=== PATIENT | male | born 1940 ===

== ENCOUNTER 2017-05-09 09:28 | Emergency (ER) | payer MEDICARE ==
[2017-05-09 09:35] VITALS: BMI 32.0
[2017-05-09 09:39] VITALS: O2SAT 98
[2017-05-09 11:06] LABS: BASO # 0.1 K/uL (0.0-0.2); BASO % 1.1 % (0.0-2.0); EOS # 0.5 K/uL (0.0-0.7); EOS % 5.1 % (0.0-4.0); HEMATOCRIT 39.4 % (35.0-51.0); LYMPH # 2.7 K/uL (1.0-4.3); LYMPH % 28.4 % (20.0-40.0); MEAN CELL VOLUME 91.6 fl (80.0-94.0); MEAN CORPUSCULAR HEMOGLOBIN 30.9 pg (27.0-31.0); MEAN CORPUSCULAR HGB CONC 33.7 g/dL (33.0-37.0); MEAN PLATELET VOLUME 8.1 fl (7.2-11.7); MONO # 1.1 K/uL (0.0-0.8); NEUT % 53.4 % (50.0-75.0); NRBC % 0.1 % (0.0-0.0); RED CELL DISTRIBUTION WIDTH 14.3 % (11.5-14.5); WHITE BLOOD COUNT 9.3 K/uL (4.8-10.8)
[2017-05-09 11:12] LABS: ALB/GLOB RATIO 1.3 (1.0-2.1); ALKALINE PHOSPHATASE 44 U/L (38-126); ALT/SGPT 41 U/L (21-72); AST/SGOT 26 U/L (17-59); BILIRUBIN,TOTAL 0.4 mg/dl (0.2-1.3); BLOOD UREA NITROGEN 19 mg/dl (9-20); CARBON DIOXIDE 27 mmol/L (22-30); CHLORIDE 105 mmol/L (98-107); GFR AFRICAN-AMERICAN > 60; GLUCOSE,RANDOM 124 mg/dL (75-110); SODIUM 142 mmol/l (132-148); TOTAL PROTEIN 7.6 G/DL (6.3-8.2)
--- NOTE | 2017-05-09 11:13 | CT ---
PROCEDURE: CT HEAD WITHOUT CONTRAST. HISTORY: Funny feeling in head COMPARISON: Head CT without contrast 06/19/2012 TECHNIQUE: Axial computed tomography images were obtained through the head/brain without intravenous contrast. Radiation dose: Total exam DLP = 844.14 mGy-cm. This CT exam was performed using one or more of the following dose reduction techniques: Automated exposure control, adjustment of the mA and/or kV according to patient size, and/or use of iterative reconstruction technique. FINDINGS: HEMORRHAGE: No intracranial hemorrhage. BRAIN: Diffuse expansion of the ventriculosulcal and cisternal spaces is appreciated with white matter lucency compatible with diffuse cerebral atrophy and chronic microangiopathy. There has been only limited increase in this pattern in the interval. No additional interval findings appreciated including the extra-axial spaces. No mass effect. VENTRICLES: Unremarkable. No hydrocephalus. CALVARIUM: Unremarkable. PARANASAL SINUSES: Unremarkable as visualized. No significant inflammatory changes. MASTOID AIR CELLS: Unremarkable as visualized. No inflammatory changes. OTHER FINDINGS: None. IMPRESSION: Marginal increase in age-related neuro degenerative changes which are age-appropriate. No definite acute intracranial findings. Follow-up CT or MRI are available if clinically warranted.
--- NOTE | 2017-05-09 11:46 | CARD ---
APPROVED REPORT EKG Measurement Heart [id number] <Conclusion> Normal sinus rhythm Possible Left atrial enlargement Borderline ECG
--- NOTE | 2017-05-09 13:07 | ED PDOC ---
HPI: General Adult Time Seen by Provider: 05/09/17 10:16 Chief Complaint (Nursing): Dizziness/Lightheaded Chief Complaint (Provider): Dizziness/Lightheaded History Per: Patient History/Exam Limitations: no limitations Onset/Duration Of Symptoms: Other (x 2 weeks) Current Symptoms Are (Timing): Still Present Additional Complaint(s): Ronald is a 76 year old male with a past medical history of diabetes and hypertension who presents to the Emergency Department complaining of light headedness for 2 weeks. Patient states bilateral ear stuffiness, feeling of mosquitos in his head. Denies headache, fever, neck stiffness, chest pain, shortness of breath. 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) - Family History Family History: States: Unknown Family Hx, CAD, Diabetes - Immunization History Hx Tetanus Toxoid Vaccination: No Hx Influenza Vaccination: No Hx Pneumococcal Vaccination: No - Home Medications Home Medications: Ambulatory Orders Medication Instructions Recorded Famotidine [Pepcid] 20 mg PO BID #0 tab 10/16/15 Furosemide [Lasix] 20 mg PO DAILY #0 tab 10/16/15 Amiodarone [Cordarone] 200 mg PO DAILY #0 tab 10/31/15 Amoxicillin/Clavulanate [Augmentin 1 tab PO Q12 #14 tab 10/31/15 875 MG-125 MG] Aspirin [Ecotrin] 81 mg PO DAILY #0 tabec 10/31/15 Atorvastatin [Lipitor] 40 mg PO DAILY #0 tab 10/31/15 Ciprofloxacin 500 mg PO Q12 #0 ml 10/31/15 Clopidogrel [Plavix] 75 mg PO DAILY #0 tab 10/31/15 Collagenase [Santyl] 1 applic TOP DAILY #0 tube 10/31/15 Famotidine [Pepcid] 20 mg PO BID #0 tab 10/31/15 Ferrous Sulfate [Feosol] 325 mg PO DAILY #0 tab 10/31/15 Lisinopril [Zestril] 2.5 mg PO DAILY #0 tab 10/31/15 Metoprolol Tartrate [Lopressor] 12.5 mg PO Q12H #0 tab 10/31/15 Mirtazapine [Remeron] 7.5 mg PO HS #0 tab 10/31/15 Mirtazapine [Remeron] 7.5 mg PO HS #0 tablet 10/31/15 Potassium Chloride [K-Dur 20 mEq 20 meq PO DAILY #0 tab 10/31/15 ER Tab] Albuterol HFA [Ventolin HFA 90 1 puff IH ASDIR #1 unit 12/16/15 mcg/actuation (8 g)] Azithromycin [Zithromax Z-Regulo] 250 mg PO DAILY #7 tab 12/16/15 Benzonatate 200 mg PO TID PRN #20 capsule 12/16/15 - Allergies Allergies/Adverse Reactions: Allergies Allergy/AdvReac Type Severity Reaction Status Date / Time No Known Allergies Allergy Verified 05/09/17 09:35 Review of Systems ROS Statement: Except As Marked, All Systems Reviewed And Found Negative Constitutional: Negative for: Fever ENT: Positive for: Other (Bilaterally ear congestion, No neck stiffness) Cardiovascular: Negative for: Chest Pain Respiratory: Negative for: Shortness of Breath Neurological: Negative for: Other (Headache) Physical Exam - Reviewed Nursing Documentation Reviewed: Yes Vital Signs Reviewed: Yes - Physical Exam Appears: Positive for: Well, Non-toxic, No Acute Distress Head Exam: Positive for: ATRAUMATIC, NORMAL INSPECTION, NORMOCEPHALIC Skin: Positive for: Normal Color, Warm, Dry Eye Exam: Positive for: Normal appearance, EOMI, PERRL ENT: Positive for: Normal ENT Inspection, TM Is/Are (WNL). Negative for: Sinus Pain/Drainage, Tonsillar Swelling Neck: Positive for: Normal, Painless ROM, Supple Cardiovascular/Chest: Positive for: Regular Rate, Rhythm Respiratory: Positive for: CNT, Normal Breath Sounds Gastrointestinal/Abdominal: Positive for: Normal Exam Back: Positive for: Normal Inspection Extremity: Positive for: Normal ROM Neurologic/Psych: Positive for: Alert, integrity director II-XII, Oriented, Gait (WNL). Negative for: Motor/Sensory Deficits, Aphasia, Facial Droop - Laboratory Results Result Diagrams: 05/09/17 10:50 05/09/17 10:50 - ECG O2 Sat by Pulse Oximetry: 98 (RA) Pulse Ox Interpretation: Normal Medical Decision Making Medical Decision Making: Time: 10:16 Impressions: Light Headedness Initial Plan: - CT Head Without Contrast - EKG - CMP - CBC - Accucheck - Urinalysis Scribe Attestation: Documented by Prasad Cooper, acting as a scribe for Bouchra Temple MD Provider Scribe Attestation: All medical record entries made by the Scribe were at my direction and personally dictated by me. I have reviewed the chart and agree that the record accurately reflects my personal performance of the history, physical exam, medical decision making, and the department course for this patient. I have also personally directed, reviewed, and agree with the discharge instructions and disposition. Disposition - Clinical Impression Clinical Impression: Lightheadedness - Patient ED Disposition Is Patient to be Admitted: No - Disposition Referrals: [facility] [Outside] Disposition: Routine/Home Disposition Time: 14:22 Condition: STABLE Instructions: Lightheadedness (ED) Forms: [employer] (K[place]i) Print Language: ENGLISH
[2017-05-09 13:21] LABS: URINE BILIRUBIN NEGATIVE (NEGATIVE); URINE BLOOD MODERATE (NEGATIVE); URINE COLOR YELLOW (YELLOW); URINE GLUCOSE (UA) NEG (Normal); URINE KETONE NEGATIVE (NEGATIVE); URINE LEUKOCYTE ESTERASE NEG Leu/uL (Negative); URINE PROTEIN NEGATIVE (NEGATIVE); URINE UROBILINOGEN 0.2-1.0 mg/dL (0.2-1.0); WBC URINE 1 /hpf (0-5)
[2017-05-09 13:27] LABS: RBC URINE 10 /hpf (0-3)
[2017-05-09 14:31] VITALS: RESP 18
[2017-05-09 14:33] VITALS: BP 115/68; PULSE 82; TEMP 98.6
== END 2017-05-09 14:34 | disposition home or self-care (01) ==
LOC: H.ER 09:28
DX: R42 Dizziness and giddiness (principal); E11.9 Type 2 diabetes mellitus without complications; F32.9 Major depressive disorder, single episode, unspecified; F41.9 Anxiety disorder, unspecified; I10 Essential (primary) hypertension; I25.10 Atherosclerotic heart disease of native coronary artery without angina pectoris; Z79.82 Long term (current) use of aspirin; Z95.1 Presence of aortocoronary bypass graft

== ENCOUNTER 2017-09-15 11:15 | Emergency (ER) | payer MEDICARE ==
[2017-09-15 11:18] VITALS: BMI 31.8
[2017-09-15 11:19] VITALS: BP 154/80; PULSE 80; RESP 20; TEMP 97.7; O2SAT 98
--- NOTE | 2017-09-15 11:57 | ED PDOC ---
HPI: CCC, URI, Sore Throat Time Seen by Provider: 09/15/17 11:55 Chief Complaint (Nursing): ENT Problem Chief Complaint (Provider): Otitis Media Onset/Duration Of Symptoms: Days (2) Current Symptoms Are (Timing): Still Present Location Of Pain: Ear(s) Sick Contacts (Context): None Associated Symptoms: denies: Fever, Sore Throat, Cough Severity: Mild Past Medical History Vital Signs: Last Vital Signs Temp 97.7 F 09/15/17 11:19 Pulse 80 09/15/17 11:19 Resp 20 09/15/17 11:19 BP 154/80 H 09/15/17 11:19 Pulse Ox 98 09/15/17 11:59 - Medical History PMH: Anemia, Anxiety, CAD, Depression, Diabetes (type II), HTN Denies: HIV, Chronic Kidney Disease - Surgical History Surgical History: CABG (x3; 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) - Family History Family History: States: Unknown Family Hx, CAD, Diabetes - Immunization History Hx Tetanus Toxoid Vaccination: No Hx Influenza Vaccination: No Hx Pneumococcal Vaccination: No - Home Medications Home Medications: Ambulatory Orders Medication Instructions Recorded Famotidine [Pepcid] 20 mg PO BID #0 tab 10/16/15 Furosemide [Lasix] 20 mg PO DAILY #0 tab 10/16/15 Amiodarone [Cordarone] 200 mg PO DAILY #0 tab 10/31/15 Amoxicillin/Clavulanate [Augmentin 1 tab PO Q12 #14 tab 10/31/15 875 MG-125 MG] Aspirin [Ecotrin] 81 mg PO DAILY #0 tabec 10/31/15 Atorvastatin [Lipitor] 40 mg PO DAILY #0 tab 10/31/15 Ciprofloxacin 500 mg PO Q12 #0 ml 10/31/15 Clopidogrel [Plavix] 75 mg PO DAILY #0 tab 10/31/15 Collagenase [Santyl] 1 applic TOP DAILY #0 tube 10/31/15 Famotidine [Pepcid] 20 mg PO BID #0 tab 10/31/15 Ferrous Sulfate [Feosol] 325 mg PO DAILY #0 tab 10/31/15 Lisinopril [Zestril] 2.5 mg PO DAILY #0 tab 10/31/15 Metoprolol Tartrate [Lopressor] 12.5 mg PO Q12H #0 tab 10/31/15 Mirtazapine [Remeron] 7.5 mg PO HS #0 tab 10/31/15 Mirtazapine [Remeron] 7.5 mg PO HS #0 tablet 10/31/15 Potassium Chloride [K-Dur 20 mEq 20 meq PO DAILY #0 tab 10/31/15 ER Tab] Albuterol HFA [Ventolin HFA 90 1 puff IH ASDIR #1 unit 12/16/15 mcg/actuation (8 g)] Azithromycin [Zithromax Z-Regulo] 250 mg PO DAILY #7 tab 12/16/15 Benzonatate 200 mg PO TID PRN #20 capsule 12/16/15 Amoxicillin/Clavulanate [Augmentin 1 tab PO BID #20 tab 09/15/17 875 MG-125 MG] - Allergies Allergies/Adverse Reactions: Allergies Allergy/AdvReac Type Severity Reaction Status Date / Time No Known Allergies Allergy Verified 05/09/17 09:35 Review of Systems ROS Statement: Except As Marked, All Systems Reviewed And Found Negative ENT: Positive for: Ear Pain Physical Exam - Physical Exam Head Exam: Positive for: ATRAUMATIC, NORMAL INSPECTION, NORMOCEPHALIC Skin: Positive for: Normal Color ENT: Positive for: TM Is/Are (right TM is clear with all landmarks identified; left TM is cloudy with efusion no landmarks visible), Hearing Is (+ +). Negative for: Pharyngeal Erythema, Tonsillar Exudate Neck: Positive for: Normal, Painless ROM, Supple Pulses-Carotid (R): 2+ - ECG O2 Sat by Pulse Oximetry: 98 Medical Decision Making Medical Decision Making: Impression is Otitis Media Left Ear Plan: Augmentin x 10 days Disposition - Clinical Impression Clinical Impression: Otitis media Comment: follow up with PMD in 3-5 days. take all medication as prescribed - Disposition Disposition: Routine/Home Disposition Time: 11:59 Condition: GOOD Prescriptions: Amoxicillin/Clavulanate [Augmentin 875 MG-125 MG] 1 tab PO BID #20 tab Forms: [employer] ([place]an)
== END 2017-09-15 12:27 | disposition home or self-care (01) ==
LOC: H.ER 11:15
DX: H66.92 Otitis media, unspecified, left ear (principal); E11.9 Type 2 diabetes mellitus without complications

== ENCOUNTER 2017-09-21 11:54 | Emergency (ER) | payer MEDICARE ==
[2017-09-21 11:54] VITALS: BMI 31.8
[2017-09-21 12:10] VITALS: BP 136/65; PULSE 71; RESP 18; TEMP 98; O2SAT 98
--- NOTE | 2017-09-21 12:34 | ED PDOC ---
HPI: General Adult Time Seen by Provider: 09/21/17 12:15 Chief Complaint (Nursing): ENT Problem Chief Complaint (Provider): Left ear pain History Per: Patient History/Exam Limitations: no limitations Onset/Duration Of Symptoms: Days (x1 week) Current Symptoms Are (Timing): Still Present Recently: Seen In ED Additional Complaint(s): Ronald Hernández is a 76 year old male, with a past medical history of hypertension and diabetes, who presents to the emergency department complaining of left ear pain onset for x1 week. Patient describes the pain as pressure-like and states his left ear is plugged, he also reports losing balance. Patient states he was seen x1 week ago in the ED and was prescribed antibiotics but with no relief of symptoms. He denies any other medical complaints. 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) - Family History Family History: States: Unknown Family Hx, CAD, Diabetes - Social History Current smoker - smoking cessation education provided: No Alcohol: None Drugs: Denies - Immunization History Hx Tetanus Toxoid Vaccination: No Hx Influenza Vaccination: No Hx Pneumococcal Vaccination: No - Home Medications Home Medications: Ambulatory Orders Medication Instructions Recorded Famotidine [Pepcid] 20 mg PO BID #0 tab 10/16/15 Furosemide [Lasix] 20 mg PO DAILY #0 tab 10/16/15 Amiodarone [Cordarone] 200 mg PO DAILY #0 tab 10/31/15 Amoxicillin/Clavulanate [Augmentin 1 tab PO Q12 #14 tab 10/31/15 875 MG-125 MG] Aspirin [Ecotrin] 81 mg PO DAILY #0 tabec 10/31/15 Atorvastatin [Lipitor] 40 mg PO DAILY #0 tab 10/31/15 Ciprofloxacin 500 mg PO Q12 #0 ml 10/31/15 Clopidogrel [Plavix] 75 mg PO DAILY #0 tab 10/31/15 Collagenase [Santyl] 1 applic TOP DAILY #0 tube 10/31/15 Famotidine [Pepcid] 20 mg PO BID #0 tab 10/31/15 Ferrous Sulfate [Feosol] 325 mg PO DAILY #0 tab 10/31/15 Lisinopril [Zestril] 2.5 mg PO DAILY #0 tab 10/31/15 Metoprolol Tartrate [Lopressor] 12.5 mg PO Q12H #0 tab 10/31/15 Mirtazapine [Remeron] 7.5 mg PO HS #0 tab 10/31/15 Mirtazapine [Remeron] 7.5 mg PO HS #0 tablet 10/31/15 Potassium Chloride [K-Dur 20 mEq 20 meq PO DAILY #0 tab 10/31/15 ER Tab] Albuterol HFA [Ventolin HFA 90 1 puff IH ASDIR #1 unit 12/16/15 mcg/actuation (8 g)] Azithromycin [Zithromax Z-Regulo] 250 mg PO DAILY #7 tab 12/16/15 Benzonatate 200 mg PO TID PRN #20 capsule 12/16/15 Amoxicillin/Clavulanate [Augmentin 1 tab PO BID #20 tab 09/15/17 875 MG-125 MG] Amoxicillin/Clavulanate [Augmentin 1 tab PO BID #20 tab 09/15/17 875 MG-125 MG] Ciprofloxacin/Dexamethasone 4 drop QID #1 bottle 09/21/17 [Ciprodex Otic] - Allergies Allergies/Adverse Reactions: Allergies Allergy/AdvReac Type Severity Reaction Status Date / Time No Known Allergies Allergy Verified 09/21/17 12:05 Review of Systems ROS Statement: Except As Marked, All Systems Reviewed And Found Negative ENT: Positive for: Ear Pain (left ear) Physical Exam - Reviewed Nursing Documentation Reviewed: Yes Vital Signs Reviewed: Yes - Physical Exam Appears: Positive for: Non-toxic, No Acute Distress Head Exam: Positive for: ATRAUMATIC, NORMOCEPHALIC Skin: Positive for: Normal Color, Warm, Dry Eye Exam: Positive for: Normal appearance ENT: Positive for: Other (AD: landmarks visible, (+) light reflection, no erythema, discharge or drainage. : (-) light reflection, no visible landmarks. Ear canal with mild drainage & erythema.) Neurologic/Psych: Positive for: Alert, Oriented - ECG O2 Sat by Pulse Oximetry: 98 (RA) Pulse Ox Interpretation: Normal Medical Decision Making Medical Decision Making: Initial Impression: Otitis externa supportive Initial Plan: -Will prescribe Ciprodex Otic 4 drop QID ~ Scribe Attestation: Documented by Yvan Meade, acting as a scribe for Elio Arredondo PA-C. Provider Scribe Attestation: All medical record entries made by the Scribe were at my direction and personally dictated by me. I have reviewed the chart and agree that the record accurately reflects my personal performance of the history, physical exam, medical decision making, and the department course for this patient. I have also personally directed, reviewed, and agree with the discharge instructions and disposition. Disposition - Clinical Impression Clinical Impression: Otitis externa, Left ear pain, Acute ear pain - Disposition Referrals: Oscar Phelps MD [Staff Provider] - Disposition Time: 12:54 Condition: GOOD Prescriptions: Ciprofloxacin/Dexamethasone [Ciprodex Otic] 4 drop QID #1 bottle Instructions: Outer Ear Infection (DC) Forms: [employer] (Tristanian)
== END 2017-09-21 13:08 | disposition home or self-care (01) ==
LOC: H.ER 11:54
DX: H60.92 Unspecified otitis externa, left ear (principal); E11.9 Type 2 diabetes mellitus without complications

== ENCOUNTER 2017-11-14 11:20 | Emergency (ER) | payer MEDICARE, OTHER ==
[2017-11-14 11:30] VITALS: TEMP 99; BMI 32.9
[2017-11-14 13:15] LABS: PARTIAL THROMBOPLASTIN TIME 31.6 Seconds (25.6-37.1)
[2017-11-14 13:20] LABS: BASO # 0.1 K/uL (0.0-0.2); BASO % 0.7 % (0.0-2.0); EOS # 0.5 K/uL (0.0-0.7); HEMOGLOBIN 13.1 g/dL (12.0-18.0); LYMPH # 2.5 K/uL (1.0-4.3); LYMPH % 24.2 % (20.0-40.0); MEAN CORPUSCULAR HEMOGLOBIN 31.6 pg (27.0-31.0); MEAN CORPUSCULAR HGB CONC 34.7 g/dL (33.0-37.0); MEAN PLATELET VOLUME 8.3 fl (7.2-11.7); MONO # 1.3 K/uL (0.0-0.8); MONO % 12.3 % (0.0-10.0); NEUT % 57.8 % (50.0-75.0); NRBC % 0.1 % (0.0-0.0); RBC 4.16 Mil/uL (4.40-5.90); RED CELL DISTRIBUTION WIDTH 13.9 % (11.5-14.5); WHITE BLOOD COUNT 10.5 K/uL (4.8-10.8)
--- NOTE | 2017-11-14 13:21 | RAD ---
HISTORY: chest pain/ r/o infiltrate COMPARISON: Portable chest 01/02/2016. TECHNIQUE: Chest PA and lateral FINDINGS: LUNGS: No active pulmonary disease. PLEURA: No significant pleural effusion identified. No pneumothorax apparent. CARDIOVASCULAR: Cardiac size remains normal. No pulmonary venous congestion. Post CABG operative changes reiterated. OSSEOUS STRUCTURES: No significant abnormalities. VISUALIZED UPPER ABDOMEN: Normal. OTHER FINDINGS: None. IMPRESSION: No acute cardiopulmonary is appreciated. Post CABG changes again evident.
[2017-11-14 14:11] LABS: ALB/GLOB RATIO 1.2 (1.0-2.1); ALBUMIN 4.3 g/dL (3.5-5.0); BLOOD UREA NITROGEN 32 mg/dl (9-20); CALCIUM 10.1 mg/dL (8.4-10.2); GFR AFRICAN-AMERICAN 60; GFR NON-AFRICAN AMERICAN 50
[2017-11-14 14:12] LABS: ALT/SGPT 46 U/L (21-72); AST/SGOT 28 U/L (17-59); B-TYPE NATRIURETIC PEPTIDE 56.3 pg/ml (0-900)
--- NOTE | 2017-11-14 14:21 | US ---
HISTORY: Abdominal pain and swelling. COMPARISON: 11/03/2017 abdominal aortic ultrasound. TECHNIQUE: Sonographic evaluation of the abdomen. FINDINGS: LIVER: Measures 14.0 cm. Hepatopedal blood flow. Fatty infiltration manifest ultrasonographically as increased echogenicity of the liver parenchyma. No mass. No intrahepatic bile duct dilatation. GALLBLADDER: Contracted gallbladder. COMMON BILE DUCT: Measures 2.7 mm. No stones. No dilatation. PANCREAS: Obscured by overlying bowel gas. Non diagnostic assessment of the pancreas RIGHT KIDNEY: Measures 5 x 9.8cm. Normal echogenicity. No calculus, mass, or hydronephrosis. LEFT KIDNEY: Measures 4.9 x 10.4cm. Normal echogenicity. No calculus, mass, or hydronephrosis. SPLEEN: Normal in size and contour. No mass. AORTA: No aneurysmal dilatation. IVC: Unremarkable. OTHER FINDINGS: None. IMPRESSION: Hepatic steatosis, otherwise unremarkable study.
[2017-11-14 15:13] LABS: URINE BILIRUBIN NEGATIVE (NEGATIVE); URINE BLOOD NEGATIVE (NEGATIVE); URINE CLARITY CLEAR (Clear); URINE COLOR YELLOW (YELLOW); URINE GLUCOSE (UA) NEG (Normal); URINE HYALINE CAST 0-2 /hpf (0-2); URINE LEUKOCYTE ESTERASE NEG Leu/uL (Negative); URINE PROTEIN NEGATIVE (NEGATIVE); URINE UROBILINOGEN 0.2-1.0 mg/dL (0.2-1.0)
[2017-11-14] MEDS ORDERED: Iodixanol 320 MG/ML 100 ML BOTTLE IV ONE (15:15)
[2017-11-14] MEDS ORDERED: Sodium Chloride 0.9% 50 ML IV ONE (15:15)
--- NOTE | 2017-11-14 16:03 | CT ---
PROCEDURE: CT Chest with contrast (Pulmonary Angiogram) HISTORY: SOB COMPARISON: 10/08/2015 CT pulmonary angiogram. Summary of findings on the comparison examination: No pulmonary embolus. TECHNIQUE: Axial computed tomography images were obtained of the chest in the pulmonary arterial phase of enhancement. Coronal and sagittal reformatted images were created and reviewed. Maximum intensity projection (MIP) reconstructed images in the following planes: Axial only. Intravenous contrast dose: 99 cc Visipaque 320 Mean Hounsfield unit values in the main pulmonary artery: 336.18 Radiation dose: Total exam DLP = 429.78 mGy-cm. This CT exam was performed using one or more of the following dose reduction techniques: Automated exposure control, adjustment of the mA and/or kV according to patient size, and/or use of iterative reconstruction technique. FINDINGS: PULMONARY ARTERIES: Unremarkable. No pulmonary embolism. AORTA: No acute findings. No thoracic aortic aneurysm. LUNGS: Dependent atelectasis at the lung bases, subsegmental. PLEURAL SPACES: Unremarkable. No effusion or pneuomothorax. HEART: Unremarkable. No cardiomegaly. No significant pericardial effusion. LYMPH NODES: No lymphadenopathy. BONES, CHEST WALL: Unremarkable. No fracture or destructive lesion OTHER FINDINGS: Unremarkable. IMPRESSION: Unremarkable CT pulmonary angiogram. No pulmonary embolus.
--- NOTE | 2017-11-14 18:46 | ED PDOC ---
HPI: SOB/CHF/COPD Time Seen by Provider: 11/14/17 12:04 Chief Complaint (Nursing): Shortness Of Breath Chief Complaint (Provider): shortness of breath and abdominal distension History Per: Patient History/Exam Limitations: no limitations Onset/Duration Of Symptoms: Gradual (x1-2 weeks) Quality: Tightness Exacerbating Factor(s): Exertion Recently: Treated By A Physician Additional Complaint(s): 76yo male c/o dyspnea mostly on exertion also feels his abdomen is more distended than baseline. Notes mild pain in mid abdomen, denies vomiting, diarrhea, melena, BRBPR, syncope, headache or chest pain. Went to clinic last week told to come to ER if symptoms worsen. Denies edema, orthopnea, fever, cough or malaise. 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) - Family History Family History: States: Unknown Family Hx, CAD, Diabetes - Living Arrangements Living Arrangements: With Family - Social History Current smoker - smoking cessation education provided: No - Immunization History Hx Tetanus Toxoid Vaccination: No Hx Influenza Vaccination: No Hx Pneumococcal Vaccination: No - Home Medications Home Medications: Ambulatory Orders Medication Instructions Recorded Famotidine [Pepcid] 20 mg PO BID #0 tab 10/16/15 Furosemide [Lasix] 20 mg PO DAILY #0 tab 10/16/15 Amiodarone [Cordarone] 200 mg PO DAILY #0 tab 10/31/15 Amoxicillin/Clavulanate [Augmentin 1 tab PO Q12 #14 tab 10/31/15 875 MG-125 MG] Aspirin [Ecotrin] 81 mg PO DAILY #0 tabec 10/31/15 Atorvastatin [Lipitor] 40 mg PO DAILY #0 tab 10/31/15 Ciprofloxacin 500 mg PO Q12 #0 ml 10/31/15 Clopidogrel [Plavix] 75 mg PO DAILY #0 tab 10/31/15 Collagenase [Santyl] 1 applic TOP DAILY #0 tube 10/31/15 Famotidine [Pepcid] 20 mg PO BID #0 tab 10/31/15 Ferrous Sulfate [Feosol] 325 mg PO DAILY #0 tab 10/31/15 Lisinopril [Zestril] 2.5 mg PO DAILY #0 tab 10/31/15 Metoprolol Tartrate [Lopressor] 12.5 mg PO Q12H #0 tab 10/31/15 Mirtazapine [Remeron] 7.5 mg PO HS #0 tab 10/31/15 Mirtazapine [Remeron] 7.5 mg PO HS #0 tablet 10/31/15 Potassium Chloride [K-Dur 20 mEq 20 meq PO DAILY #0 tab 10/31/15 ER Tab] Albuterol HFA [Ventolin HFA 90 1 puff IH ASDIR #1 unit 12/16/15 mcg/actuation (8 g)] Azithromycin [Zithromax Z-Regulo] 250 mg PO DAILY #7 tab 12/16/15 Benzonatate 200 mg PO TID PRN #20 capsule 12/16/15 Amoxicillin/Clavulanate [Augmentin 1 tab PO BID #20 tab 09/15/17 875 MG-125 MG] Amoxicillin/Clavulanate [Augmentin 1 tab PO BID #20 tab 09/15/17 875 MG-125 MG] Ciprofloxacin/Dexamethasone 4 drop QID #1 bottle 09/21/17 [Ciprodex Otic] - Allergies Allergies/Adverse Reactions: Allergies Allergy/AdvReac Type Severity Reaction Status Date / Time No Known Allergies Allergy Verified 09/21/17 12:05 Review of Systems Constitutional: Negative for: Fever ENT: Negative for: Ear Pain Cardiovascular: Positive for: Palpitations. Negative for: Chest Pain, Edema, Light Headedness Respiratory: Positive for: Shortness of Breath, SOB with Exertion. Negative for : Cough Gastrointestinal: Negative for: Nausea Genitourinary Male: Negative for: Dysuria Musculoskeletal: Negative for: Neck Pain Skin: Negative for: Rash, Lesions Neurological: Negative for: Weakness, Numbness, Dizziness Physical Exam - Reviewed Nursing Documentation Reviewed: Yes Vital Signs Reviewed: Yes - Physical Exam Appears: Positive for: Well, Non-toxic, No Acute Distress Head Exam: Positive for: ATRAUMATIC, NORMAL INSPECTION, NORMOCEPHALIC Skin: Positive for: Normal Color, Warm, DRY Eye Exam: Positive for: EOMI, Normal appearance, PERRL ENT: Positive for: Normal ENT Inspection Neck: Positive for: Normal, Painless ROM Cardiovascular/Chest: Positive for: Regular Rate, Rhythm Respiratory: Positive for: CNT, Normal Breath Sounds Gastrointestinal/Abdominal: Positive for: Normal Exam, Soft. Negative for: Tenderness Back: Positive for: Normal Inspection Extremity: Positive for: Normal ROM Neurologic/Psych: Positive for: Alert, Oriented. Negative for: Motor/Sensory Deficits - Laboratory Results Result Diagrams: 11/14/17 12:52 11/14/17 12:52 - ECG O2 Sat by Pulse Oximetry: 100 Medical Decision Making Medical Decision Making: workup for dyspnea initiated labs and EKG ordered US abdomen ordered labs reviewed and unremarkable trop neg BNP normal Given dyspnea without etiology CTA chest ordered and report reviewed Accession No. : [id number] Patient Name / ID : DARI KAY / [id number] Exam Date : 11/14/2017 15:16:08 ( Approved ) Study Comment : Sex / Age : M / 76Y Creator : Son Porter MD Dictator : Son Porter MD Subpoena Server : Conche Operator : Son Porter MD Approver2 : Report Date : 11/14/2017 16:02:14 My Comment : PROCEDURE: CT Chest with contrast (Pulmonary Angiogram) HISTORY: SOB COMPARISON: 10/08/2015 CT pulmonary angiogram. Summary of findings on the comparison examination: No pulmonary embolus. TECHNIQUE: Axial computed tomography images were obtained of the chest in the pulmonary arterial phase of enhancement. Coronal and sagittal reformatted images were created and reviewed. Maximum intensity projection (MIP) reconstructed images in the following planes : Axial only. Intravenous contrast dose: 99 cc Visipaque 320 Mean Hounsfield unit values in the main pulmonary artery: 336.18 Radiation dose: Total exam DLP = 429.78 mGy-cm. This CT exam was performed using one or more of the following dose reduction techniques: Automated exposure control, adjustment of the mA and/or kV according to patient size, and/or use of iterative reconstruction technique. FINDINGS: PULMONARY ARTERIES: Unremarkable. No pulmonary embolism. AORTA: No acute findings. No thoracic aortic aneurysm. LUNGS: Dependent atelectasis at the lung bases, subsegmental. PLEURAL SPACES: Unremarkable. No effusion or pneuomothorax. HEART: Unremarkable. No cardiomegaly. No significant pericardial effusion. LYMPH NODES: No lymphadenopathy. BONES, CHEST WALL: Unremarkable. No fracture or destructive lesion OTHER FINDINGS: Unremarkable. IMPRESSION: Unremarkable CT pulmonary angiogram. No pulmonary embolus. workup unrevealing for dyspnea in ED Denies chest pain, and symptoms ongoing >1 week Stable for outpatient workup as hes ambulating without distress, no hypoxia, normal gait Dr Dinh PMD from clinic saw patient in ED, to accelerate outpatient workup Disposition - Clinical Impression Clinical Impression: Dyspnea - Patient ED Disposition Is Patient to be Admitted: No Counseled Patient/Family Regarding: Studies Performed - Disposition Referrals: [facility] [Outside] Ruslan Najera MD [Staff Provider] - Disposition: Routine/Home Disposition Time: 18:51 Condition: STABLE Additional Instructions: Return to ER for any worse or new symptoms. Take medications as prior prescribed. See Dr Najera within next week for followup. See [facility] in early November as scheduled. Instructions: Shortness of Breath (Dyspnea) (DC) Forms: [employer] (Urdu) Print Language: BENGALI
[2017-11-14 19:12] VITALS: BP 120/76; PULSE 80; RESP 18; O2SAT 98
--- NOTE | 2017-11-15 09:03 | CARD ---
APPROVED REPORT EKG Measurement Heart [id number] <Conclusion> Normal sinus rhythm Possible Left atrial enlargement Nonspecific ST abnormality Abnormal ECG
== END 2017-11-14 19:15 | disposition home or self-care (01) ==
LOC: H.ER 11:20
DX: R06.00 Dyspnea, unspecified (principal); E11.9 Type 2 diabetes mellitus without complications; E78.00 Pure hypercholesterolemia, unspecified; F32.9 Major depressive disorder, single episode, unspecified; F41.9 Anxiety disorder, unspecified; I10 Essential (primary) hypertension; I25.10 Atherosclerotic heart disease of native coronary artery without angina pectoris; J44.9 Chronic obstructive pulmonary disease, unspecified; Z95.1 Presence of aortocoronary bypass graft
CPT/HCPCS: 71046; 71275; 76700; 80053; 81003; 83880; 84484; 85025; 85610; 85730; 93005; 99283; Q9967

== ENCOUNTER 2017-11-26 09:54 | Emergency (ER) | payer MEDICARE, SELFPAY ==
[2017-11-26 09:54] VITALS: BMI 32.9
--- NOTE | 2017-11-26 10:48 | ED PDOC ---
HPI: SOB/CHF/COPD Time Seen by Provider: 11/26/17 10:41 Chief Complaint (Nursing): Shortness Of Breath Chief Complaint (Provider): Shortness of Breath History Per: Patient History/Exam Limitations: no limitations Onset/Duration Of Symptoms: Days (14), Intermittent Episodes Current Symptoms Are (Timing): Still Present Initiating Event: Other (anxiety and lying down in a supine position) Exacerbating Factor(s): Laying Flat Current Respiratory Medications: JAY Inhibitor Severity: Mild Associated Symptoms: Anxiety Recently: Seen In ED, Treated By A Physician Additional Complaint(s): 77 yo male presents to the ED with complaints of shortness of breath that he believes is related to generalized anxiety. Pt has a history of a CABGx3 as well as D2M and a history of cigarette smoking that he stopped approximately 18months prior to presentation. Pt denies NVD but does complain of intermittent constipation and lack of desire to eat for fear that it will prevent him from drawing air. Pt was seen in this ED 10-11 days prior to presentation with similar symptoms and was discharged. PMD: pt is a clinic patient Past Medical History Reviewed: Historical Data, Nursing Documentation, Vital Signs Vital Signs: Last Vital Signs Temp 98 F 11/26/17 09:57 Pulse 65 11/26/17 09:57 Resp 20 11/26/17 10:57 BP 119/60 11/26/17 09:57 Pulse Ox 99 11/26/17 16:53 - Medical History PMH: Anemia, Anxiety, CAD, Depression, Diabetes (type II), HTN, Hypercholesterolemia Denies: HIV, Chronic Kidney Disease - Surgical History Surgical History: CABG (x3; 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) - Family History Family History: States: Unknown Family Hx, CAD, Diabetes - Immunization History Hx Tetanus Toxoid Vaccination: No Hx Influenza Vaccination: No Hx Pneumococcal Vaccination: No - Home Medications Home Medications: Ambulatory Orders Medication Instructions Recorded Famotidine [Pepcid] 20 mg PO BID #0 tab 10/16/15 Furosemide [Lasix] 20 mg PO DAILY #0 tab 10/16/15 Amiodarone [Cordarone] 200 mg PO DAILY #0 tab 10/31/15 Amoxicillin/Clavulanate [Augmentin 1 tab PO Q12 #14 tab 10/31/15 875 MG-125 MG] Aspirin [Ecotrin] 81 mg PO DAILY #0 tabec 10/31/15 Atorvastatin [Lipitor] 40 mg PO DAILY #0 tab 10/31/15 Ciprofloxacin 500 mg PO Q12 #0 ml 10/31/15 Clopidogrel [Plavix] 75 mg PO DAILY #0 tab 10/31/15 Collagenase [Santyl] 1 applic TOP DAILY #0 tube 10/31/15 Famotidine [Pepcid] 20 mg PO BID #0 tab 10/31/15 Ferrous Sulfate [Feosol] 325 mg PO DAILY #0 tab 10/31/15 Lisinopril [Zestril] 2.5 mg PO DAILY #0 tab 10/31/15 Metoprolol Tartrate [Lopressor] 12.5 mg PO Q12H #0 tab 10/31/15 Mirtazapine [Remeron] 7.5 mg PO HS #0 tab 10/31/15 Mirtazapine [Remeron] 7.5 mg PO HS #0 tablet 10/31/15 Potassium Chloride [K-Dur 20 mEq 20 meq PO DAILY #0 tab 10/31/15 ER Tab] Albuterol HFA [Ventolin HFA 90 1 puff IH ASDIR #1 unit 12/16/15 mcg/actuation (8 g)] Azithromycin [Zithromax Z-Regulo] 250 mg PO DAILY #7 tab 12/16/15 Benzonatate 200 mg PO TID PRN #20 capsule 12/16/15 Amoxicillin/Clavulanate [Augmentin 1 tab PO BID #20 tab 09/15/17 875 MG-125 MG] Amoxicillin/Clavulanate [Augmentin 1 tab PO BID #20 tab 09/15/17 875 MG-125 MG] Ciprofloxacin/Dexamethasone 4 drop QID #1 bottle 09/21/17 [Ciprodex Otic] ALPRAZolam [Xanax] 0.25 mg PO TID #20 tab 11/26/17 - Allergies Allergies/Adverse Reactions: Allergies Allergy/AdvReac Type Severity Reaction Status Date / Time No Known Allergies Allergy Verified 11/26/17 10:18 Wells Criteria for PE - Wells Criteria for Pulmonary Embolism Clinical Signs and Symptoms of DVT: No P.E is #1 Diagnosis, or Equally Likely: No Heart Rate >100: No Immobilization at least 3 days;Surgery previous 4 weeks: No Previous, objectively diagnosed PE or DVT: No Hemoptysis: No Malignancy w/treatment within 6 months, or palliative: No Total Score: 0 Review of Systems ROS Statement: Except As Marked, All Systems Reviewed And Found Negative Respiratory: Positive for: Shortness of Breath. Negative for: Pleuritic Pain, Sputum, Wheezing Gastrointestinal: Positive for: Constipation. Negative for: Nausea, Vomiting, Abdominal Pain, Diarrhea Psych: Positive for: Anxiety. Negative for: Suicidal ideation Physical Exam - Reviewed Nursing Documentation Reviewed: Yes Vital Signs Reviewed: Yes - Physical Exam Appears: Positive for: Well, Non-toxic, No Acute Distress. Negative for: Uncomfortable Head Exam: Positive for: ATRAUMATIC, NORMAL INSPECTION, NORMOCEPHALIC Skin: Positive for: Normal Color, Warm, Dry. Negative for: Diaphoresis Eye Exam: Positive for: Normal appearance. Negative for: Nystagmus, Periorbital swelling, Periorbital tenderness ENT: Positive for: Normal ENT Inspection, Pharynx Is (clear and non-erythematous ; there is no tonsillar or pharyngeal exudate, or edema; uvula is midline and non-edematous). Negative for: Nasal Congestion, Pharyngeal Erythema, Tonsillar Exudate, Tonsillar Swelling Neck: Positive for: Normal, Painless ROM, Supple. Negative for: Decreased ROM Cardiovascular/Chest: Positive for: Regular Rate, Rhythm, Chest Non Tender. Negative for: Edema, Bradycardia, Tachycardia, Friction Rub Respiratory: Positive for: Normal Breath Sounds. Negative for: Crackles, Rales , Rhonchi, Stridor, Wheezing, Respiratory Distress, Plerual Rub Pulses-Carotid (L): 2+ Pulses-Carotid (R): 2+ Pulses-Radial (L): 2+ Pulses-Radial (R): 2+ Gastrointestinal/Abdominal: Positive for: Normal Exam, Bowel Sounds (normal and active in all four quadrants), Soft. Negative for: Tenderness, Distended, Asicites Neurologic/Psych: Positive for: Alert, Oriented. Negative for: Motor/Sensory Deficits - Laboratory Results Result Diagrams: 11/26/17 11:23 11/26/17 11:23 - ECG ECG: Positive for: Interpreted By Me ECG Rhythm: Positive for: Normal QRS, Sinus Rhythm, Right Bundle Branch Block ( incomplete) Interpretation Of ECG: RBBB O2 Sat by Pulse Oximetry: 99 Pulse Ox Interpretation: Normal Medical Decision Making Medical Decision Making: PT will be worked up with view toward cardiac causes of dyspnea, including a CXR and labs. PT will also be referred to crisis counseling so that he may obtain outside resources Plan is to notify [facility] and have them see pt in ED as well Pt will follow up with [facility] on December 01 Disposition - Clinical Impression Clinical Impression: Anxiety attack - Patient ED Disposition Is Patient to be Admitted: No Doctor Will See Patient In The: Office Counseled Patient/Family Regarding: Diagnosis, Need For Followup, Rx Given - Disposition Referrals: [facility] [Outside] Disposition: Routine/Home Disposition Time: 16:51 Condition: GOOD Prescriptions: ALPRAZolam [Xanax] 0.25 mg PO TID #20 tab Instructions: Anxiety, Adult (DC), Panic Disorder (DC) Forms: [employer] (Citizen Of [place])
[2017-11-26] MEDS ORDERED: Albuterol-Ipratrop 3 mg / 0.5 (3 ml) UD INH STA (10:56)
[2017-11-26] MEDS ORDERED: Albuterol-Ipratrop 3 mg / 0.5 (3 ml) UD ONE (11:04)
[2017-11-26 11:26] LABS: BASO # 0.1 K/uL (0.0-0.2); EOS # 0.4 K/uL (0.0-0.7); EOS % 4.2 % (0.0-4.0); HEMOGLOBIN 13.1 g/dL (12.0-18.0); LYMPH # 2.3 K/uL (1.0-4.3); LYMPH % 23.3 % (20.0-40.0); MEAN CELL VOLUME 91.9 fl (80.0-94.0); MEAN CORPUSCULAR HEMOGLOBIN 31.3 pg (27.0-31.0); MEAN CORPUSCULAR HGB CONC 34.1 g/dL (33.0-37.0); MEAN PLATELET VOLUME 8.2 fl (7.2-11.7); MONO # 1.2 K/uL (0.0-0.8); MONO % 11.8 % (0.0-10.0); NEUT # 5.9 K/uL (1.8-7.0); NEUT % 59.7 % (50.0-75.0); NRBC % 0.1 % (0.0-0.0); RBC 4.18 Mil/uL (4.40-5.90); RED CELL DISTRIBUTION WIDTH 14.3 % (11.5-14.5); WHITE BLOOD COUNT 9.9 K/uL (4.8-10.8)
[2017-11-26 11:45] LABS: CALCIUM 9.5 mg/dL (8.4-10.2); GFR AFRICAN-AMERICAN > 60; GFR NON-AFRICAN AMERICAN 59; LIPASE 314 U/L (23-300)
[2017-11-26 11:56] LABS: ALB/GLOB RATIO 1.2 (1.0-2.1); ALBUMIN 4.7 g/dL (3.5-5.0); ALT/SGPT 36 U/L (21-72); AST/SGOT 74 U/L (17-59); BLOOD UREA NITROGEN 26 mg/dl (9-20)
[2017-11-26] MEDS ORDERED: Iohexol 240 (50 ml) PO ONE (12:54)
--- NOTE | 2017-11-26 13:19 | RAD ---
HISTORY: r/o cardiomegally r/o COPD COMPARISON: Comparison is made with 11/14/2017 TECHNIQUE: Chest PA and lateral FINDINGS: LUNGS: No significant interval change in the lungs noted since the previous exam PLEURA: No significant pleural effusion identified. No pneumothorax apparent. CARDIOVASCULAR: Normal. OSSEOUS STRUCTURES: No significant abnormalities. VISUALIZED UPPER ABDOMEN: Normal. OTHER FINDINGS: None. IMPRESSION: No significant interval change noted since the previous study. Possible mild COPD
[2017-11-26] MEDS ORDERED: Sodium Chloride 0.9% 50 ML IV ONE (15:21)
[2017-11-26] MEDS ORDERED: Iohexol 300 100 ML IJ ONE (15:21)
--- NOTE | 2017-11-26 16:19 | CT ---
PROCEDURE: CT Abdomen and Pelvis with contrast HISTORY: r/o acute abdomen COMPARISON: Comparison is made with the previous ultrasound of the abdomen dated 01/09/2015 TECHNIQUE: Contrast dose: 95 cc of Omnipaque 300. Axial and reformatted coronal and sagittal CT images of the abdomen and pelvis were obtained after IV and oral contrast administration Radiation dose: Total exam DLP = 793.92 mGy-cm. This CT exam was performed using one or more of the following dose reduction techniques: Automated exposure control, adjustment of the mA and/or kV according to patient size, and/or use of iterative reconstruction technique. FINDINGS: LOWER THORAX: Mild bibasilar atelectasis noted. The heart is mildly to moderately enlarged. LIVER: Unremarkable. No gross lesion or ductal dilatation. GALLBLADDER AND BILE DUCTS: Unremarkable. PANCREAS: Unremarkable. No gross lesion or ductal dilatation. SPLEEN: The spleen is small in size contain foci of calcification ADRENALS: Unremarkable. No mass. KIDNEYS AND URETERS: Unremarkable. No hydronephrosis. No solid mass. VASCULATURE: Unremarkable. No aortic aneurysm. BOWEL: No evidence of bowel obstruction. Colonic diverticulosis are noted without evidence of diverticulitis. APPENDIX: Normal appendix. PERITONEUM: Unremarkable. No free fluid. No free air. LYMPH NODES: Unremarkable. No enlarged lymph nodes. BLADDER: Mild urinary bladder wall thickening is noted. REPRODUCTIVE: The prostate is mildly enlarged and heterogeneous. BONES: No acute fracture. OTHER FINDINGS: None. IMPRESSION: No evidence of cholecystitis pancreatitis or appendicitis. No evidence of bowel obstruction. Colonic diverticulosis without evidence of diverticulitis.
[2017-11-26 17:07] VITALS: BP 122/63; PULSE 84; RESP 16; TEMP 97.6; O2SAT 98
--- NOTE | 2017-11-28 14:39 | CARD ---
APPROVED REPORT EKG Measurement Heart [id number] <Conclusion> Normal sinus rhythm Incomplete right bundle branch block Borderline ECG
== END 2017-11-26 17:07 | disposition home or self-care (01) ==
LOC: H.ER 09:54
DX: F41.9 Anxiety disorder, unspecified (principal); E11.9 Type 2 diabetes mellitus without complications; E78.00 Pure hypercholesterolemia, unspecified; Z86.59 Personal history of other mental and behavioral disorders; I10 Essential (primary) hypertension; J44.9 Chronic obstructive pulmonary disease, unspecified; Z79.82 Long term (current) use of aspirin; Z95.1 Presence of aortocoronary bypass graft
CPT/HCPCS: 71046; 74177; 80053; 83690; 83880; 84484; 85025; 93005; 94640; 96372; 99283; J1100; Q9966; Q9967

== ENCOUNTER 2018-01-04 10:17 | Emergency (ER) | payer MEDICARE, SELFPAY ==
[2018-01-04 10:18] VITALS: BMI 30.3
[2018-01-04] MEDS ORDERED: Sodium Chloride 0.9% 1,000 ML IV SCH (10:45)
--- NOTE | 2018-01-04 11:03 | ED PDOC ---
HPI: General Adult Time Seen by Provider: 01/04/18 10:30 Chief Complaint (Nursing): Anxiety Chief Complaint (Provider): Anxiety, Shortness Of Breath, Chest Pain History Per: Patient History/Exam Limitations: no limitations Onset/Duration Of Symptoms: Other (prior to arrival) Current Symptoms Are (Timing): Still Present Additional Complaint(s): 77 y/o male with a PMHx of HTN, diabetes, hypercholesterolemia, and CAD (CAGB 2016) presenting for evaluation of anxiety x1 day. Patient states he had an outpatient stress test yesterday. He says his fur feeder, Dr. Katelynn Najera, called him this morning and told him the stress test was positive and arranged for elective catheterization at [facility] where he had a previous catheterization. Patient was upset by what he was told, became anxious and short of breath and came to the ED for evaluation. Patient is hyperventilating and states he has chest pain. 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 Ruslan Najera Past Medical History Reviewed: Historical Data, Nursing Documentation, Vital Signs Vital Signs: Last Vital Signs Temp 98 F 01/04/18 10:24 Pulse 63 01/04/18 11:16 Resp 19 01/04/18 11:16 BP 110/69 01/04/18 11:16 Pulse Ox 100 01/04/18 11:16 - Medical History PMH: Anemia, Anxiety, CAD, Depression, Diabetes, HTN, Hypercholesterolemia Denies: HIV, Chronic Kidney Disease - Surgical History Surgical History: CABG (x3; 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) - Family History Family History: States: Unknown Family Hx, CAD, Diabetes - Immunization History Hx Tetanus Toxoid Vaccination: No Hx Influenza Vaccination: No Hx Pneumococcal Vaccination: No - Home Medications Home Medications: Ambulatory Orders Medication Instructions Recorded Famotidine [Pepcid] 20 mg PO BID #0 tab 10/16/15 Furosemide [Lasix] 20 mg PO DAILY #0 tab 10/16/15 Amiodarone [Cordarone] 200 mg PO DAILY #0 tab 10/31/15 Amoxicillin/Clavulanate [Augmentin 1 tab PO Q12 #14 tab 10/31/15 875 MG-125 MG] Aspirin [Ecotrin] 81 mg PO DAILY #0 tabec 10/31/15 Atorvastatin [Lipitor] 40 mg PO DAILY #0 tab 10/31/15 Ciprofloxacin 500 mg PO Q12 #0 ml 10/31/15 Clopidogrel [Plavix] 75 mg PO DAILY #0 tab 10/31/15 Collagenase [Santyl] 1 applic TOP DAILY #0 tube 10/31/15 Famotidine [Pepcid] 20 mg PO BID #0 tab 10/31/15 Ferrous Sulfate [Feosol] 325 mg PO DAILY #0 tab 10/31/15 Lisinopril [Zestril] 2.5 mg PO DAILY #0 tab 10/31/15 Metoprolol Tartrate [Lopressor] 12.5 mg PO Q12H #0 tab 10/31/15 Mirtazapine [Remeron] 7.5 mg PO HS #0 tab 10/31/15 Mirtazapine [Remeron] 7.5 mg PO HS #0 tablet 10/31/15 Potassium Chloride [K-Dur 20 mEq 20 meq PO DAILY #0 tab 10/31/15 ER Tab] Albuterol HFA [Ventolin HFA 90 1 puff IH ASDIR #1 unit 12/16/15 mcg/actuation (8 g)] Azithromycin [Zithromax Z-Regulo] 250 mg PO DAILY #7 tab 12/16/15 Benzonatate 200 mg PO TID PRN #20 capsule 12/16/15 Amoxicillin/Clavulanate [Augmentin 1 tab PO BID #20 tab 09/15/17 875 MG-125 MG] Amoxicillin/Clavulanate [Augmentin 1 tab PO BID #20 tab 09/15/17 875 MG-125 MG] Ciprofloxacin/Dexamethasone 4 drop QID #1 bottle 09/21/17 [Ciprodex Otic] ALPRAZolam [Xanax] 0.25 mg PO TID #20 tab 11/26/17 - Allergies Allergies/Adverse Reactions: Allergies Allergy/AdvReac Type Severity Reaction Status Date / Time No Known Allergies Allergy Verified 11/26/17 10:18 Review of Systems ROS Statement: Except As Marked, All Systems Reviewed And Found Negative Cardiovascular: Positive for: Chest Pain Respiratory: Positive for: Shortness of Breath Psych: Positive for: Anxiety Physical Exam - Reviewed Nursing Documentation Reviewed: Yes Vital Signs Reviewed: Yes - Physical Exam Appears: Positive for: Non-toxic, In Acute Distress (mild distress due to anxiety) Head Exam: Positive for: ATRAUMATIC, NORMAL INSPECTION, NORMOCEPHALIC Skin: Positive for: Normal Color, Warm, Dry. Negative for: Rash Eye Exam: Positive for: EOMI, Normal appearance, PERRL Neck: Positive for: Normal, Painless ROM, Supple Cardiovascular/Chest: Positive for: Regular Rate, Rhythm, Other (midline thoracotomy scar). Negative for: Murmur Respiratory: Positive for: Normal Breath Sounds. Negative for: Respiratory Distress Gastrointestinal/Abdominal: Positive for: Normal Exam, Soft. Negative for: Tenderness Back: Positive for: Normal Inspection. Negative for: L CVA Tenderness, R CVA Tenderness, Vertebral Tenderness Extremity: Positive for: Normal ROM. Negative for: Pedal Edema, Deformity Neurologic/Psych: Positive for: Alert, Oriented. Negative for: Motor/Sensory Deficits - ECG O2 Sat by Pulse Oximetry: 99 (RA) Pulse Ox Interpretation: Normal Medical Decision Making Medical Decision Makin:36 Impression: Coronary artery disease Plan: Plan: -EKG -laboratory monitor -Reevaluation 11:00 Dr. Najera came to see patient. Reviewed EKG and says it is the same as before stress test and he has no concerns for any acute abnormalities. As per recommendation, patient will be discharged. Scribe Attestation: Documented by Amilcar Tamayo, acting as a scribe for Kristen Bailey MD. Provider Scribe Attestation: All medical record entries made by the Scribe were at my direction and personally dictated by me. I have reviewed the chart and agree that the record accurately reflects my personal performance of the history, physical exam, medical decision making, and the department course for this patient. I have also personally directed, reviewed, and agree with the discharge instructions and disposition. Disposition - Clinical Impression Clinical Impression: CAD (coronary artery disease) - Patient ED Disposition Is Patient to be Admitted: No Doctor Will See Patient In The: Office Counseled Patient/Family Regarding: Diagnosis, Need For Followup - Disposition Referrals: Ruslan Najera MD [Family Provider] - [facility] [Outside] Disposition: Routine/Home Disposition Time: 11:00 Condition: STABLE Instructions: Coronary Heart Disease Forms: [employer] (Nauruan) Print Language: GEORGIAN - POA Present On Arrival: None
[2018-01-04 11:24] VITALS: O2SAT 99
[2018-01-04 11:32] VITALS: BP 113/65; PULSE 69; RESP 16
[2018-01-04 11:41] VITALS: TEMP 98.2
--- NOTE | 2018-01-05 16:38 | CARD ---
APPROVED REPORT Date of service: 01/04/2018 EKG Measurement Heart [id number] NM [id number] <Conclusion> Normal sinus rhythm Incomplete right bundle branch block Nonspecific ST abnormality Abnormal ECG
== END 2018-01-04 11:40 | disposition home or self-care (01) ==
LOC: H.ER 10:17
DX: I25.10 Atherosclerotic heart disease of native coronary artery without angina pectoris (principal); E11.9 Type 2 diabetes mellitus without complications; Z86.59 Personal history of other mental and behavioral disorders; E78.00 Pure hypercholesterolemia, unspecified; I10 Essential (primary) hypertension; Z79.82 Long term (current) use of aspirin; Z82.49 Family history of ischemic heart disease and other diseases of the circulatory system; Z95.1 Presence of aortocoronary bypass graft

== ENCOUNTER 2018-07-26 11:48 | Emergency (ER) | payer MEDICARE ==
[2018-07-26 11:49] VITALS: BMI 30.3
[2018-07-26 11:57] VITALS: RESP 16; TEMP 97.7
--- NOTE | 2018-07-26 13:01 | ED PDOC ---
HPI: Back Time Seen by Provider: 07/26/18 12:17 Chief Complaint (Nursing): Back Pain Chief Complaint (Provider): Low Back Pain History Per: Patient History/Exam Limitations: no limitations Onset/Duration Of Symptoms: Days (x7) Current Symptoms Are (Timing): Constant Associated Symptoms: None Exacerbating Factor(s): Movement Additional Complaint(s): Patient is a 77 y/o male with a past medical history of hypertension, hypercholesterolemia, chronic back pain, anemia, anxiety, CAD, depression, and diabetes who presents to the ED for evaluation of constant, left, lower back pain ongoing for the past week. Patient claims to have a history of chronic back pain after a fall in 1993, which resulted in herniated lumbar and cervical discs. Patient states the pain is sharp and radiating down his left leg. Pain in unchanged from previous episodes. Patient denies recent falls or trauma, urinary symptoms, abdominal pain, chest pain, SOB, hematuria, incontinence, numbness/weakness, or vomiting. Patient has not taken any medication for the pain. No other complaints. PCP: [facility] (Dr. Weller and Dr. Hwang) Past Medical History Reviewed: Historical Data, Nursing Documentation, Vital Signs Vital Signs: Last Vital Signs Temp 97.7 F 07/26/18 11:54 Pulse 77 07/26/18 11:54 Resp 16 07/26/18 11:54 BP 171/103 H 07/26/18 11:54 Pulse Ox 97 07/26/18 11:54 - Medical History PMH: Anemia, Anxiety, Back Problems, CAD, Depression, Diabetes, HTN, Hypercholesterolemia - Surgical History Surgical History: CABG (2016), Coronary Stent - Family History Family History: States: CAD, Diabetes - Home Medications Home Medications: Ambulatory Orders Medication Instructions Recorded RX: Aspirin [Ecotrin] 81 mg PO DAILY #0 tabec 10/31/15 ALPRAZolam [Xanax] 0.25 mg PO TID PRN 01/06/18 RX: Atorvastatin [Lipitor] 40 mg PO QPM 01/06/18 RX: Metoprolol Tartrate [Lopressor] 25 mg PO Q12H 01/06/18 RX: hydroCHLOROthiazide 12.5 mg PO DAILY 01/06/18 [Hydrodiuril] Sertraline [Zoloft] 100 mg PO QAM 01/06/18 metFORMIN [glucOPHAGE] 500 mg PO BID 01/06/18 Clopidogrel [Plavix] 75 mg PO DAILY #90 tab 01/10/18 Acetaminophen [Acetaminophen 8 650 mg PO Q8 PRN #21 tablet.er 07/26/18 Hour] - Allergies Allergies/Adverse Reactions: Allergies Allergy/AdvReac Type Severity Reaction Status Date / Time No Known Allergies Allergy Verified 07/26/18 11:53 Review of Systems ROS Statement: Except As Marked, All Systems Reviewed And Found Negative Constitutional: Negative for: Fever Cardiovascular: Negative for: Chest Pain Respiratory: Negative for: Cough, Shortness of Breath Gastrointestinal: Negative for: Vomiting, Abdominal Pain Genitourinary Male: Negative for: Dysuria, Incontinence, Hematuria Musculoskeletal: Positive for: Back Pain (left, lower), Leg Pain (left; radiating from back pain) Neurological: Negative for: Weakness, Numbness Physical Exam - Reviewed Nursing Documentation Reviewed: Yes Vital Signs Reviewed: Yes - Physical Exam Comments: GENERAL APPEARANCE: Patient is awake, alert, oriented x 3, in mild painful distress. SKIN: Warm, dry; (-) cyanosis. ENMT: Mucous membranes moist. Airway patent, (-) stridor. NECK: Supple, FROM CHEST AND RESPIRATORY: (-) rales, (-) rhonchi, (-) wheezes; breath sounds equal bilaterally. HEART AND CARDIOVASCULAR: (-) irregularity ABDOMEN AND GI: Soft (-) distention. Bowel sounds active x4. (-) guarding, (-) rebound, (-) palpable masses, (-) CVA tenderness. EXTREMITIES: (-) deformity, (-) edema, (+) distal pulses. Limping gate when ambulating. Back: (+) Left paralumbar and left sciatic notch tenderness (-) midline tenderness (-) palpable deformity NEURO AND PSYCH: Mental status as above; (-) focal findings. Speech: clear. (-) facial asymmetry. Strength of lower extremities 5/5 bilaterally. Sensation intact throughout. - ECG O2 Sat by Pulse Oximetry: 97 (RA) Pulse Ox Interpretation: Normal Medical Decision Making Medical Decision Making: Time: 1240 Impression: Acute on chronic Back Pain; Probable Sciatica Plan: Tylenol 650 mg PO Ultram 100 mg PO ( not driving home) Re-evaluation 1320 Repeat BP: 127/84 Repeat HR: 72 On re-evaluation, patient reports improvement of symptoms. On exam, patient remains AAOx3, in no acute distress. Lungs clear to auscultation, cardiac RRR, abdomen soft, non-tender, repeat neuro exam shows no focal findings. Gait steady in ED. Vitals stable. Lab / Diagnostic results d/w the patient in great detail. Diagnosis of acute on chronic back pain, sciatica, herniated lumbar discs d/w the patient. Based on history, exam and diagnostic results, plan will be for outpatient follow up with PMD/ortho. Patient instructed to follow-up with pmd / referral provided / the clinic in 1- 2 days without fail. Advised to take medication as prescribed. Return to the emergency room at any time for any new or worsening symptoms. Patient states he fully agrees with and understands discharge instructions. States that he agrees with the plan and disposition. Verbalized and repeated discharge instructions and plan. I have given the patient opportunity to ask any additional questions. Scribe Attestation: Documented by Gaston Kincaid, acting as a scribe for CATHI Santillan. Provider Scribe Attestation: All medical record entries made by the Scribe were at my direction and personally dictated by me. I have reviewed the chart and agree that the record accurately reflects my personal performance of the history, physical exam, medical decision making, and the department course for this patient. I have also personally directed, reviewed, and agree with the discharge instructions and disposition. Disposition - Clinical Impression Clinical Impression: Low back pain, Sciatica, Herniated vertebral disc, Chronic back pain - Patient ED Disposition Is Patient to be Admitted: No Counseled Patient/Family Regarding: Studies Performed, Diagnosis, Need For Followup, Rx Given - Disposition Referrals: [facility] [Outside] Keo Vaughn III, MD [Staff Provider] - Disposition: Routine/Home Disposition Time: 13:15 Condition: STABLE Additional Instructions: The emergency medical care you received today was directed at your acute symptoms. If you were prescribed any medication, please fill it and take as directed. It may take several days for your symptoms to resolve. Return to the Emergency Department if your symptoms worsen, do not improve, or if you have any other problems. Please contact your doctor in 2 days for re-evaluation and follow up / or call one of the physicians/clinics you have been referred to that are listed on the Patient Visit Information form that is included in your discharge packet. Bring any paperwork you were given at discharge with you along with any medications you are taking to your follow up visit. Our treatment cannot replace ongoing medical care by a primary care provider (PCP) outside of the emergency department. Prescriptions: Acetaminophen [Acetaminophen 8 Hour] 650 mg PO Q8 PRN #21 tablet.er PRN Reason: Pain, Moderate (4-7) Instructions: Sciatica, Low Back Pain in Adults, Herniated Disc, Back Exercises, Chronic Pain, Sciatica Exercises Forms: [employer] (Welsh) Print Language: BULGARIAN - POA Present On Arrival: None
[2018-07-26 13:22] VITALS: BP 127/84; PULSE 72
[2018-07-26 13:28] VITALS: O2SAT 97
== END 2018-07-26 13:52 | disposition home or self-care (01) ==
LOC: H.ER 11:48
DX: M54.5 Low back pain (principal); M54.32 Sciatica, left side; M54.42 Lumbago with sciatica, left side; E11.9 Type 2 diabetes mellitus without complications; E78.00 Pure hypercholesterolemia, unspecified; I10 Essential (primary) hypertension; Z79.84 Long term (current) use of oral hypoglycemic drugs; Z95.5 Presence of coronary angioplasty implant and graft; M51.27 Other intervertebral disc displacement, lumbosacral region